=== PATIENT | female | born 1980 | race Caucasian/White ===

== ENCOUNTER 2016-04-18 20:23 | Emergency (ER) | payer SELFPAY ==
[2016-04-18] MEDS ORDERED: DIAZEPAM 5 MG/ML DISP.SYRIN IM ONE (21:39)
[2016-04-18] MEDS ORDERED: oxyCODONE/ACETAMINOPHEN 5/325 TABLET PO ONE (21:39)
--- NOTE | 2016-04-18 21:47 | ED Physician Documentation ---
Neck Injury/Pain - HISTORIAN Historian: patient - HPI Stated Complaint: neck/head pain Chief Complaint: General Adult Additional Information: Chronic neck pain, worse for a week. Saw Dana Gonzalez on 04/12. TID flexeril and alebriana are not helping. Pain radiates to top of head. Recent Injury: No Severity: severe Quality: sharp, similar- prior back pain (neck) Exacerbated By: movement of neck Relieved By: nothing Further Comments: yes (no new numbness, tingling, weakness) - ROS NEURO/PSYCH: denies: difficulty with speech - PAST HX Past History: neck injury, back injury, neck pain, other (lumbar area nerve ablations (?)) Allergies/Adverse Reactions: Allergies Allergy/AdvReac Type Severity Reaction Status Date / Time Sulfa (Sulfonamide Allergy Intermediate Rash Verified 04/18/16 20:41 Antibiotics) Home Medications: Ambulatory Orders Medication Instructions Recorded Chlorzoxazone [Parafon Forte Dsc] 500 mg PO Q12H #20 tablet 04/18/16 Meloxicam [Mobic] 7.5 mg PO Q12H #20 tablet 04/18/16 - SOCIAL HX Smoking History: cigarettes - FAMILY HX Family History: no significant history - VITAL SIGNS Vital Signs: Vital Signs Temp Pulse Resp BP Pulse Ox 85 16 126/80 97 04/18/16 20:38 04/18/16 20:38 04/18/16 20:38 04/18/16 20:38 - REVIEWED ASSESSMENT Nursing Assessment Reviewed: Yes Vitals Reviewed: Yes Progress - Progress Progress: Better after valium and percocet. Script for parafon forte dsc because it worked better for her in December. ED Results Lab/Radiology - Orders Orders: ED Orders Category Date Time Status Diazepam [Valium] Med 04/18/16 21:39 Discontinued 5 mg IM NOW ONE oxyCODONE HCL/ACETAMINOPHEN [Percocet 5-325 mg Tablet] Med 04/18/16 21:39 Discontinued 2 each PO NOW ONE Neck Injury/Pain - Physical Exam General Appearance: alert, moderate distress EENT: nml ENT inspection Neck: decreased ROM (2/2 pain. Neptali trap spasm, tender to palpation) Back: non-tender Respiratory: breath sounds nml CVS: heart sounds nml Skin: warm/dry, normal color Extremities: no evidence of injury, no edema Neuro/Psych: CN's nml as tested, sensation nml, motor nml, other (reflexes 2+ throughoout) Discharge Clincal Impression: Neck pain, bilateral Prescriptions: Chlorzoxazone [Parafon Forte Dsc] 500 mg PO Q12H #20 tablet Meloxicam [Mobic] 7.5 mg PO Q12H #20 tablet Additional Instructions: Stop the Aleve while you are taking meloxicam. Follow up with your provider. Home Medications: Ambulatory Orders Chlorzoxazone [Parafon Forte Dsc] 500 mg PO Q12H #20 tablet 04/18/16 Meloxicam [Mobic] 7.5 mg PO Q12H #20 tablet 04/18/16 Condition: Fair Disposition: HOME, SELF-CARE Decision to Admit: NO Decision Time: 22:53
[2016-04-18 23:06] VITALS: BP 118/68
== END 2016-04-18 23:00 | disposition home or self-care (01) ==
LOC: ED 20:23
DX: M54.2 Cervicalgia (principal)
CPT/HCPCS: 96372; 99282; 99283; J3360; A9270-GY

== ENCOUNTER 2016-07-23 15:54 | Emergency (ER) | payer SELFPAY ==
--- NOTE | 2016-07-23 16:12 | ED Physician Documentation ---
Skin Rash - HISTORIAN Historian: patient - HPI Stated Complaint: skin ulcer L breast Chief Complaint: Skin Rash Additional Information: noticed today, ulceration opened and drained, lateral L breast. 2mm ulcer, with 1CM erythema surrounding. minimally pain. no induration , no fluculent. Onset: hours Timing: still present Duration: persistent since Location: trunk Quality: none Identified Cause?: No Where: home Context: Medication Exposure: none Context: Food Exposure: none Context: Other Exposure: other (could be insect or arachnid evenomation) Further Comments: no - ROS CONST: none CVS/RESP: none EYES/ENT: none GI/: none MS/SKIN/LYMPH: none NEURO/PSYCH: none - PAST HX Past History: none Other History: none Surgeries/Procedures: No Immunizations: UTD Allergies/Adverse Reactions: Allergies Allergy/AdvReac Type Severity Reaction Status Date / Time Sulfa (Sulfonamide Allergy Intermediate Rash Verified 04/18/16 20:41 Antibiotics) Home Medications: Ambulatory Orders Medication Instructions Recorded Chlorzoxazone [Parafon Forte Dsc] 500 mg PO Q12H #20 tablet 04/18/16 Meloxicam [Mobic] 7.5 mg PO Q12H #20 tablet 04/18/16 - SOCIAL HX Smoking History: non-smoker Alcohol Use: none Drug Use: none - FAMILY HX Family History: none - VITAL SIGNS Vital Signs: Vital Signs Temp Pulse Resp BP Pulse Ox 118/68 04/18/16 23:03 - REVIEWED ASSESSMENTS Nursing Assessment Reviewed: Yes Vitals Reviewed: Yes Skin Rash Physical Exam - EXAM General Appearance: no acute distress, alert Skin: warm,dry, other (2mm ulceration L lat breast as described) Location: trunk Character: symmetric Symptoms: tenderness, well defined border. No: warmth, induration, thickening, weeping, crusting Extremities: non-tender EENT: eyes nml inspection, pharynx nml Neck: trachea midline, no swelling Respiratory: no resp distress Abdomen: non-tender Neuro/Psych: oriented x3, mood/affect nml Discharge Clincal Impression: Insect bite (nonvenomous) of breast, left breast, initial encounter Qualifiers: Encounter type: initial encounter Qualified Code(s): S20.162A - Insect bite ( nonvenomous) of breast, left breast, initial encounter; W57.XXXA - Bitten or stung by nonvenomous insect and other nonvenomous arthropods, initial encounter Clincal Impression: (Ruled Out): Skin ulceration Home Medications: Ambulatory Orders Chlorzoxazone [Parafon Forte Dsc] 500 mg PO Q12H #20 tablet 04/18/16 Meloxicam [Mobic] 7.5 mg PO Q12H #20 tablet 04/18/16 Condition: Good Disposition: HOME, SELF-CARE Decision to Admit: NO Date of Decison to Admit: 07/23/16 Decision Time: 16:16
[2016-07-23 16:21] VITALS: BP 122/60
== END 2016-07-23 16:30 | disposition home or self-care (01) ==
LOC: ED 15:54
DX: S20.162A Insect bite (nonvenomous) of breast, left breast, initial encounter (principal); X58.XXXA Exposure to other specified factors, initial encounter; Y93.9 Activity, unspecified; Y99.9 Unspecified external cause status
CPT/HCPCS: 99283

== ENCOUNTER 2016-09-22 19:00 | Emergency (ER) | payer OTHER ==
[2016-09-22 19:18] VITALS: BP 145/80
[2016-09-22] MEDS ORDERED: ORPHENADRINE CITRATE 60 MG/2ML IM ONE (19:32)
[2016-09-22] MEDS ORDERED: KETOROLAC TROMETHAMINE 60 MG/2 ML VIAL IM ONE (19:32)
--- NOTE | 2016-09-22 19:37 | ED Physician Documentation ---
Neck Injury/Pain - HISTORIAN Historian: patient - HPI Stated Complaint: left neck and shoulder pain Chief Complaint: Neck Pain Onset: days ago (3) Duration: worse Recent Injury: No Context: lifting, turning Where: work Other Injuries: neck Severity: severe Relieved By: nothing Further Comments: yes (36 year old female patient presents with complaints of left lateral neck pain. States pain started 3 days and has become progressively worse. Used flexeril this morning and tylenol, pain worse this afternoon.) - ROS NEURO/PSYCH: denies: difficulty with speech, anxiety, depression, other EYES/ENT: none CVS/RESP: none CONST: no problems GI/: denies: nausea, vomiting, problems urinating, incontinence, other MS/SKIN/LYMPH: none - PAST HX Past History: denies: neck injury, neck pain, back pain Surgeries/Procedures: cholecystectomy, other ( x4) Allergies/Adverse Reactions: Allergies Allergy/AdvReac Type Severity Reaction Status Date / Time Sulfa (Sulfonamide Allergy Intermediate Rash Verified 09/22/16 19:09 Antibiotics) Home Medications: Ambulatory Orders Medication Instructions Recorded NK [NK] 07/23/16 - SOCIAL HX Smoking History: cigarettes - FAMILY HX Family History: denies: none - VITAL SIGNS Vital Signs: Vital Signs Temp Pulse Resp BP Pulse Ox 99.6 F 83 18 145/80 97 09/22/16 19:00 09/22/16 19:00 09/22/16 19:00 09/22/16 19:00 09/22/16 19:00 - REVIEWED ASSESSMENT Nursing Assessment Reviewed: Yes Vitals Reviewed: Yes ED Results Lab/Radiology - Orders Orders: ED Orders Category Date Time Status Ketorolac Tromethamine [Toradol] Med 09/22/16 19:32 Once 60 mg IM NOW ONE Orphenadrine Citrate [Norflex] Med 09/22/16 19:32 Once 60 mg IM NOW ONE Neck Injury/Pain - Physical Exam General Appearance: moderate distress Neck: nml inspection, muscle spasm (left lateral, along sternocliedomastoid muscle), decreased ROM (pain with ROM) Back: non-tender, painless ROM Respiratory: chest non-tender, breath sounds nml CVS: heart sounds nml, bilateral pulses nml Abdomen: non-tender, no organomegaly, nml bowel sounds, no distention Skin: normal color, warm/dry, NR, INT, PAL, DR Neuro/Psych: oriented x3, CN's nml as tested, sensation nml, motor nml, mood/ affect nml, geospatial applications developer nml, reflexes nml, geospatial applications developer symmetrical Discharge Clincal Impression: Cervical strain Qualifiers: Encounter type: initial encounter Qualified Code(s): S16.1XXA - Strain of muscle, fascia and tendon at neck level, initial encounter Referrals: Matilde Hawkins MD [Primary Care Provider] - 2 Days Additional Instructions: 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 You may use Tylenol every 4hour as needed for pain. Limit your dose to less than 4 G per day. Do not take ibuprofen, aleve, naproxen or any other NSAID while you are on toradol. You may want to try massage, biofreeze, abiel boyle or aspercream Home Medications: Ambulatory Orders NK [NK] 07/23/16 Condition: Stable Disposition: 01 HOME, SELF-CARE Decision to Admit: NO Decision Time: 19:37
== END 2016-09-22 19:59 | disposition home or self-care (01) ==
LOC: ED 19:00
DX: S16.1XXA Strain of muscle, fascia and tendon at neck level, initial encounter (principal); X58.XXXA Exposure to other specified factors, initial encounter; Y93.9 Activity, unspecified; Y99.9 Unspecified external cause status
CPT/HCPCS: J1885; J2360; 96372; 99283

== ENCOUNTER 2017-08-22 21:29 | Emergency (ER) | payer OTHER ==
--- NOTE | 2017-08-22 22:24 | ED Physician Documentation ---
General Adult - HISTORIAN Historian: patient - HPI Stated Complaint: Right-side neck pain Chief Complaint: General Adult Additional Information: Neck pain worse on the right for a few days. Ran out of flexeril 3 days ago and took last percocet last evening. Has appt with Dr. Dietrich at [facility] on 09/04. Has also been taking naprosyn and tylenol. Has been applying heat occasionally. HX chronic neck pain. No other modifying factors or associated signs. - ROS CONST: no problems - PAST HX Past History: none Allergies/Adverse Reactions: Allergies Allergy/AdvReac Type Severity Reaction Status Date / Time Sulfa (Sulfonamide Allergy Intermediate Rash Verified 08/22/17 21:50 Antibiotics) Home Medications: Ambulatory Orders Medication Instructions Recorded Cyclobenzaprine HCl [Flexeril] 10 mg PO HS #15 tablet 08/22/17 Tramadol HCl [Ultram] 50 mg PO Q4 PRN #15 tablet 08/22/17 - SOCIAL HX Smoking History: cigarettes - FAMILY HX Family History: No - VITAL SIGNS Vital Signs: Vital Signs Temp Pulse Resp BP Pulse Ox 97.4 F L 62 14 127/60 99 08/22/17 21:30 08/22/17 21:30 08/22/17 21:30 08/22/17 21:30 08/22/17 21:30 - REVIEWED ASSESSMENTS Nursing Assessment Reviewed: Yes Vitals Reviewed: Yes ED Results Lab/Radiology - Orders Orders: ED Orders Category Date Time Status Ketorolac Tromethamine [Toradol] Med 08/22/17 22:11 Discontinued 60 mg IM NOW ONE Orphenadrine Citrate [Norflex] Med 08/22/17 22:11 Discontinued 60 mg IM NOW ONE General Adult Physical Exam - PHYSICAL EXAM GENERAL APPEARANCE: moderate distress EENT: eye inspection normal, ENT inspection normal NECK: normal inspection, other (slow active motion, no palpable spasm. no vertebraal tenderness) RESPIRATORY: breath sounds normal CVS: reg rate & rhythm, heart sounds normal ABDOMEN: soft, normal bowel sounds BACK: normal inspection, other (no vertebral tenderness) SKIN: warm/dry, normal color EXTREMITIES: non-tender, no evidence of injury, no edema NEURO: CN's nml as tested, motor nml, sensation nml, cognition normal, other ( reflexes 2+) Discharge Clincal Impression: Neck pain on right side Prescriptions: Cyclobenzaprine HCl [Flexeril] 10 mg PO HS #15 tablet Tramadol HCl [Ultram] 50 mg PO Q4 PRN #15 tablet PRN Reason: Pain Referrals: Matilde Hawkins MD [Primary Care Provider] - 2 Days Condition: Fair Disposition: 01 HOME, SELF-CARE Decision to Admit: NO Decision Time: 22:25
[2017-08-22] MEDS: KETOROLAC TROMETHAMINE 60 MG/2 ML VIAL IM ONE (22:25)
[2017-08-22] MEDS: ORPHENADRINE CITRATE 60 MG/2ML IM ONE (22:25)
[2017-08-22 22:43] VITALS: BP 128/72
[2017-08-23 06:33] LABS: CANNABINOIDS NEGATIVE ng/mL (< 50); METHYLENEDIOXYMETHAMPHETAMINE NEGATIVE ng/mL (<500)
== END 2017-08-22 22:40 | disposition home or self-care (01) ==
LOC: ED 21:29
DX: M54.2 Cervicalgia (principal)
CPT/HCPCS: J1885; J2360; 80377; 96372; 99284; G0481

== ENCOUNTER 2017-12-24 16:50 | Outpatient (CLI) | payer OTHER | END 2017-12-24 16:52 | LOC: LABRHC 16:50 | PROVIDERS: ATTEND Family Medicine | DX: R30.0 Dysuria (principal) | CPT/HCPCS: 87086 ==

== ENCOUNTER 2018-04-17 09:10 | Outpatient (CLI) | payer OTHER ==
--- NOTE | 2018-04-17 12:54 | Diagnostic Imaging Report ---
LAITH HUITRON [facility] [address] [facility] [address] [place] [address]. [id number] Report Submission Date: Apr 17, 2018 10:19:13 AM MECHANICAL TECHNOLOGIST Patient Study Name: EDITH ROWE Date: Apr 17, 2018 9:37:17 AM MECHANICAL TECHNOLOGIST Modality Type: US Gender: F Description: : 80 Institution: [facility] Physician: LAITH HUITRON Examination: Ultrasound pelvis History: RT SIDED PAIN Comparison exams: None available Findings: Sonographic evaluation of the pelvis demonstrates uterus measuring 9.4 x 5.4 x 6.6 cm. Myometrium without gross regularity. Endometrial complex measures 13.5 mm. Nabothian cyst measuring 9 mm. Right ovary measures 2.9 x 2.3 x 2.7 cm. Left ovary measures 2.7 x 1.9 x 1.8 cm. Normal flow on Doppler analysis. Right ovary cyst measuring 2.0 x 1.5 x 1.8 cm Impression: No evidence for pelvic mass or lesion. No myometrial abnormality. No ovarian torsion. Right ovarian cyst. Thickened endometrial complex at 13.5 mm: Correlate with menstrual cycle. Electronically signed on Apr 17, 2018 10:19:13 AM MECHANICAL TECHNOLOGIST by: Jairo CHERRY
--- NOTE | 2018-04-17 12:56 | Diagnostic Imaging Report ---
LAITH HUITRON [facility] [address] [facility] [address] [place] [address]. [id number] Report Submission Date: Apr 17, 2018 10:19:01 AM RN BEHAVIORAL HEALTH Patient Study Name: EDITH ROWE Date: Apr 17, 2018 9:22:36 AM RN BEHAVIORAL HEALTH Modality Type: US Gender: F Description: USPELVIS ABD : 80 Institution: [facility] Physician: LAITH HUITRON Examination: Ultrasound pelvis History: RT SIDED PAIN Comparison exams: None available Findings: Sonographic evaluation of the pelvis demonstrates uterus measuring 9.4 x 5.4 x 6.6 cm. Myometrium without gross regularity. Endometrial complex measures 13.5 mm. Nabothian cyst measuring 9 mm. Right ovary measures 2.9 x 2.3 x 2.7 cm. Left ovary measures 2.7 x 1.9 x 1.8 cm. Normal flow on Doppler analysis. Right ovary cyst measuring 2.0 x 1.5 x 1.8 cm Impression: No evidence for pelvic mass or lesion. No myometrial abnormality. No ovarian torsion. Right ovarian cyst. Thickened endometrial complex at 13.5 mm: Correlate with menstrual cycle. Electronically signed on Apr 17, 2018 10:19:01 AM RN BEHAVIORAL HEALTH by: Jairo CHERRY
== END 2018-04-17 09:30 ==
LOC: RAD 09:10
PROVIDERS: ATTEND Family Medicine
DX: N83.201 Unspecified ovarian cyst, right side (principal)
CPT/HCPCS: 76830; 76856